=== PATIENT | female | born 1995 | race Caucasian/White ===

== ENCOUNTER 2017-03-05 11:44 | Emergency (ER) | payer MEDICAID ==
[~2017-03-05] VITALS: Ht 165.1 cm; Wt 79.0 kg
[2017-03-05 13:13] LABS: BASOPHILS % 0.3 % (0.0-2.0); EOSINOPHILS % 2.6 % (0.0-5.0); HEMATOCRIT. 37.7 % (36.0-48.0); HEMOGLOBIN. 13.4 g/dL (12.0-16.0); LYMPHOCYTES % 40.1 % (20.0-50.0); MEAN CORPUSCULAR HEMOGLOBIN 28.8 pg (28.0-32.0); MEAN CORPUSCULAR VOLUME 81.1 fL (81.0-99.0); MEAN PLATELET VOLUME 8.3 fl (7.4-10.4); MONOCYTES % 6.2 % (2.0-8.0); NEUTROPHILS % 50.8 % (40.0-76.0); PLATELET 272 x1000/uL (130-400); RED BLOOD CELL COUNT 4.65 mill/uL (4.2-5.4); RED CELL DISTRIBUTION WIDTH 13.5 % (11.6-14.6)
[2017-03-05 13:23] LABS: CARBON DIOXIDE 28 mEq/L (21-32); CHLORIDE 107 mEq/L (98-107)
[2017-03-05 14:01] LABS: CLARITY URINE CLOUDY (CLEAR); COLOR URINE YELLOW (YELLOW); GLUCOSE URINE NEGATIVE (NEGATIVE); KETONES URINE NEGATIVE (NEGATIVE); LEUKOCYTE ESTERASE URINE 3+ (NEGATIVE); NITRITE URINE NEGATIVE (NEGATIVE); OCCULT BLOOD URINE NEGATIVE (NEGATIVE); PH URINE 8.5 (4.5-8.0); PROTEIN URINE NEGATIVE (NEGATIVE); SPECIFIC GRAVITY URINE 1.011 (1.005-1.030)
[2017-03-05] MEDS ORDERED: IBUPROFEN 600MG TABLET PO ONE (15:30)
[2017-03-05 15:43] VITALS: BP 106/69
== END 2017-03-05 15:45 | disposition home or self-care (01) ==
LOC: ER 13:13
DX: N39.0 Urinary tract infection, site not specified (principal)
CPT/HCPCS: 36415; 76830; 76856; 80053; 81001; 81025; 85025; 99285; Z7610

== ENCOUNTER 2017-04-17 12:04 | Emergency (ER) | payer MEDICAID ==
[~2017-04-17] VITALS: Ht 165.1 cm; Wt 78.0 kg
[2017-04-17 12:27] VITALS: BP 117/78
== END 2017-04-17 21:01 | disposition left against medical advice (07) ==
LOC: ER 12:13
DX: R10.9 Unspecified abdominal pain (principal); Z53.21 Procedure and treatment not carried out due to patient leaving prior to being seen by health care provider